=== PATIENT | male | born 1970 | race Caucasian/White ===

== ENCOUNTER 2017-09-14 09:26 | Emergency (ER) | payer SELFPAY, MEDICAID | END 2017-09-14 12:29 | disposition left against medical advice (07) | LOC: FTE 12:29 | DX: Z53.21 Procedure and treatment not carried out due to patient leaving prior to being seen by health care provider (principal) ==

== ENCOUNTER → 2018-10-03 | Emergency (ER) | payer MEDICAID | END | disposition home or self-care (01) | LOC: FTE 13:31 | DX: J06.9 Acute upper respiratory infection, unspecified (principal) | CPT/HCPCS: 93005; 99283-25 ==